=== PATIENT | male | born 2000 | race Caucasian/White ===

== ENCOUNTER 2021-01-07 22:24 | Emergency (ER) | payer BC, OTHER ==
[2021-01-07 22:29] VITALS: BP 116/73; PULSE 70; TEMP 97.9; BMI 19.1
[2021-01-08] MEDS ORDERED: DIPHTH,PERTUSS(ACELL),TET 0.5 ML DISP.SYRIN IM ONE ×2 (00:09→00:49)
== END 2021-01-08 00:57 | disposition home or self-care (01) ==
LOC: JER 22:24
PROC: 0CQ1XZZ Repair Lower Lip, External Approach (ICD-10-PCS; principal; 2021-01-07)
PROC: 3E0234Z Introduction of Serum, Toxoid and Vaccine into Muscle, Percutaneous Approach (ICD-10-PCS; 2021-01-07)
DX: S01.511A Laceration without foreign body of lip, initial encounter (principal)
CPT/HCPCS: 90715; 99284-25